=== PATIENT | male | born 1935 | race Caucasian/White ===

== ENCOUNTER 2019-06-29 08:41 | Emergency (ER) | payer OTHER ==
[~2019-06-29] VITALS: Ht 170.2 cm; Wt 68.0 kg
[2019-06-29] MEDS ORDERED: VYVANSE40 MG PO (08:55)
[2019-06-29] MEDS ORDERED: ATORVASTATIN CA40 MG (08:56)
[2019-06-29] MEDS ORDERED: MICROZIDE12.5 MG PO (08:56)
[2019-06-29] MEDS ORDERED: TOPROL XL50 M1 PO (08:56)
== END 2019-06-29 13:56 | disposition home or self-care (01) ==
LOC: ER 08:41
DX: S01.121A Laceration with foreign body of right eyelid and periocular area, initial encounter (principal); W06.XXXA Fall from bed, initial encounter; Y93.89 Activity, other specified; Y92.89 Other specified places as the place of occurrence of the external cause; Y99.8 Other external cause status

== ENCOUNTER 2020-11-21 06:29 | Emergency (ER) | payer OTHER ==
[~2020-11-21] VITALS: Ht 170.2 cm; Wt 70.3 kg
[~2020-11-21 06:29] MED LIST: ATORVASTATIN CA40 MG; MICROZIDE12.5 MG PO; TOPROL XL50 M1 PO; VYVANSE40 MG PO
[2020-11-21] MEDS ORDERED: ECOTRIN81 MG (06:43)
== END 2020-11-21 12:15 | disposition home or self-care (01) ==
LOC: ER 06:29
DX: L03.114 Cellulitis of left upper limb (principal); S50.862A Insect bite (nonvenomous) of left forearm, initial encounter; W57.XXXA Bitten or stung by nonvenomous insect and other nonvenomous arthropods, initial encounter; Y93.89 Activity, other specified; Y92.89 Other specified places as the place of occurrence of the external cause; Y99.8 Other external cause status